=== PATIENT | male | born 1980 | race Caucasian/White ===

== ENCOUNTER 2018-01-09 11:27 | Emergency (ER) | payer MEDICAID ==
[~2018-01-09] VITALS: Ht 185.4 cm; Wt 86.2 kg
[~2018-01-09 11:27] MED LIST: RISP3TAB3 PO
[2018-01-09 11:30] VITALS: BP 114/69
--- NOTE | 2018-01-09 11:34 | NUR ---
Patient ambulated to bed 3. RN evaluating patient at bedside.
--- NOTE | 2018-01-09 11:34 | NUR ---
Report given to Alexandra SMILEY.
--- NOTE | 2018-01-09 11:38 | NUR ---
PATIENT PRESENTS TO ED FOR MED REFILL OF RISPERADOL. PATIENT STATES HE IS FEELING SOME PARANOIA AND ANXIETY ASSOCIATED WITH HIS CONDITION. DENIES N/V/D; SKIN IS PINK/WARM/DRY; AAOX4 WITH EVEN AND STEADY GAIT; LUNGS CLEAR BL; HR EVEN AND REGULAR; PT DENIES ANY FEVER, CP, SOB, OR COUGH AT THIS TIME; PATIENT STATES PAIN OF 0/10 AT THIS TIME; VSS; PATIENT POSITIONED FOR COMFORT; HOB ELEVATED; BEDRAILS UP X1; BED DOWN. ER MD MADE AWARE OF PT STATUS.
--- NOTE | 2018-01-09 12:20 | NUR ---
Patient appears to be resting comfortably in bed. Vital Signs within normal limits. Respirations even and unlabored.
[2018-01-09 12:52] VITALS: BP 110/66
--- NOTE | 2018-01-09 12:54 | NUR ---
Patient discharged with v/s stable. Written and verbal after care instructions given and explained. Patient alert, oriented and verbalized understanding of instructions. Ambulatory with steady gait. All questions addressed prior to discharge. ID band removed. Patient advised to follow up with PMD. Rx of BENADRYL, RISPERADAL given. Patient educated on indication of medication including possible reaction and side effects. Opportunity to ask questions provided and answered.
== END 2018-01-09 12:54 | disposition home or self-care (01) ==
LOC: MED 11:27
DX: F20.9 Schizophrenia, unspecified (principal); Z76.0 Encounter for issue of repeat prescription; Z79.899 Other long term (current) drug therapy
CPT/HCPCS: 99283